=== PATIENT | female | born 1945 | race Caucasian/White ===

== ENCOUNTER 2017-05-27 17:13 | Emergency (ER) | payer MEDICARE, MEDICAID ==
--- NOTE | 2017-05-27 20:22 | ULT ---
ULTRASOUND WITH DOPPLER DUPLEX VENOUS LOWER EXTREMITY LEFT: HISTORY: A 72-year-old female with left lower extremity pain. TECHNIQUE: Color flow Doppler, spectral waveform analysis of pulsed Doppler, and rojas-scale imaging with compre ssion and augmentation, were used to evaluate the left common femoral, femoral, popliteal, posterior tibial, and superficial femoral, veins; and the proximal portions of the profunda femoral and great er saphenous, veins. FINDINGS: There is normal compressibility, demonstration of blood flow by color Doppler and pulsed Doppler, an d response to augmentation, in all interrogated veins. IMPRESSION: Negative. No deep vein thrombosis in the left lower extremity. jn[] POS: LYNDA
== END 2017-05-27 18:58 | disposition home or self-care (01) ==
LOC: ERS 17:13
DX: M79.605 Pain in left leg (principal); E78.5 Hyperlipidemia, unspecified; E66.9 Obesity, unspecified; I48.91 Unspecified atrial fibrillation; I10 Essential (primary) hypertension; J44.9 Chronic obstructive pulmonary disease, unspecified; M10.9 Gout, unspecified; Z79.899 Other long term (current) drug therapy; Z79.01 Long term (current) use of anticoagulants; Z79.891 Long term (current) use of opiate analgesic

== ENCOUNTER 2018-01-10 12:18 | Outpatient (CLI) | payer MEDICARE, MEDICAID ==
--- NOTE | 2018-01-10 13:38 | ULT ---
BILATERAL CAROTID ULTRASOUND WITH COLOR AND SPECTRAL DOPPLER IMAGING: HISTORY: A 72-year-old female with a history of a TIA. FINDINGS: Visual plaque is noted in both right and left proximal ICAs. PSV RIGHT ICA: 106 cm per second EDV: 36 cm per second ICA/CCA RATIO: 1.5 PSV LEFT ICA: 78 cm per second EDV: 16 cm per second ICA/CCA RATIO: 0.6 Vertebral flow is antegrade. IMPRESSION: 1. No hemodynamically significant stenosis. 2. Bilateral proximal internal carotid artery plaque, evidence for bilateral carotid artery vascular disease. POS: JARED
== END 2018-01-10 12:19 | disposition home or self-care (01) ==
LOC: ULT 12:18
PROVIDERS: ATTEND Family Medicine
DX: I65.23 Occlusion and stenosis of bilateral carotid arteries (principal)
CPT/HCPCS: 93306; 93880

== ENCOUNTER 2018-01-12 09:14 | Outpatient (CLI) | payer MEDICARE, MEDICAID | END 2018-01-12 09:15 | disposition home or self-care (01) | LOC: BICMAMMO 09:14 | PROVIDERS: ATTEND Family Medicine | DX: Z12.31 Encounter for screening mammogram for malignant neoplasm of breast (principal); N64.89 Other specified disorders of breast; R92.1 Mammographic calcification found on diagnostic imaging of breast | CPT/HCPCS: 77063; 77067 ==

== ENCOUNTER 2018-01-26 09:51 | Outpatient (CLI) | payer MEDICARE, MEDICAID | END 2018-01-26 09:52 | disposition home or self-care (01) | LOC: BICMAMMO 09:51 | PROVIDERS: ATTEND Family Medicine | DX: N64.89 Other specified disorders of breast (principal); R92.1 Mammographic calcification found on diagnostic imaging of breast | CPT/HCPCS: 77065; G0279 ==

== ENCOUNTER 2019-01-29 10:52 | Outpatient (CLI) | payer MEDICARE, OTHER ==
--- NOTE | 2019-01-29 13:11 | MMO ---
Bilateral MAMMO Bilat Screen [facility]. CLINICAL HISTORY: Patient is 73 years old and is seen for screening. The patient has no family history of breast cancer. The patient has no personal history of cancer. VIEWS: The views performed were: bilateral craniocaudal with tomosynthesis and bilateral mediolateral oblique with tomosynthesis. FILMS COMPARED: The present examination has been compared to prior imaging studies performed at [facility] on 01/14/2015, 06/29/2016, 01/12/2018 and 01/26/2018. MAMMOGRAM FINDINGS: There are scattered fibroglandular densities. There are stable benign appearing calcifications seen in both breasts. There are also vascular calcifications. There are no suspicious masses, suspicious calcifications, or new areas of architectural distortion. IMPRESSION: THERE IS NO MAMMOGRAPHIC EVIDENCE OF MALIGNANCY. A ROUTINE FOLLOW-UP MAMMOGRAM IN 1 YEAR IS RECOMMENDED. THE RESULTS OF THIS EXAM WERE SENT TO THE PATIENT. ACR BI-RADS Category 2 - Benign finding MAMMOGRAPHY NOTE: 1. A negative mammogram report should not delay a biopsy if a dominant of clinically suspicious mass is present. 2. Approximately 10% to 15% of breast cancers are not detected by mammography. 3. Adenosis and dense breasts may obscure an underlying neoplasm.
== END 2019-01-29 10:53 | disposition home or self-care (01) ==
LOC: BICMAMMO 10:52
PROVIDERS: ATTEND Family Medicine
DX: Z12.31 Encounter for screening mammogram for malignant neoplasm of breast (principal)
CPT/HCPCS: 77063; 77067

== ENCOUNTER 2019-03-27 15:42 | Observation (INO) | payer MEDICARE, MEDICAID ==
[2019-03-27] MEDS ORDERED: Ondansetron PF 4 MG/2 ML Vial ONE ×2 (18:30→19:45)
[2019-03-27] MEDS ORDERED: Bacitracin Zinc Ointment 30 gm TUBE ONE (18:53)
[2019-03-27] MEDS ORDERED: Sodium Chloride 0.9% 30 ML ONE (18:53)
[2019-03-27] MEDS ORDERED: Fentanyl 100 MCG/2 ML VIAL ONE (19:00)
[2019-03-27] MEDS ORDERED: Bupivacaine PF 0.5% 30 ML VIAL ONE (19:14)
[2019-03-27] MEDS ORDERED: Metoprolol Tartrate 5 MG/5 ML VIAL ONE (19:45)
[2019-03-27] MEDS ORDERED: Lidocaine 1% PF 5 ML VIAL ONE (19:45)
[2019-03-27] MEDS ORDERED: Dexamethasone 20 MG/5 ML VIAL ONE (19:45)
[2019-03-27] MEDS ORDERED: Rocuronium Bromide 10 MG/ML (10ML VIAL) ONE (19:45)
[2019-03-27] MEDS ORDERED: PROPOFOL 200 MG/20 ML VIAL ONE (19:45)
[2019-03-27] MEDS ORDERED: Meperidine HCl/PF 25 MG/ML VIAL SLOW IVP PRN (20:40)
[2019-03-27] MEDS ORDERED: Ondansetron HCl/PF 4 MG/2 ML Vial IVP PRN (20:40)
[2019-03-27] MEDS ORDERED: Morphine Sulfate 2 MG/ML SYRINGE SLOW IVP PRN (20:40)
[2019-03-27] MEDS ORDERED: PACU-Morphine 4MG/ML VIAL SLOW IVP PRN (20:40)
[2019-03-27] MEDS ORDERED: Promethazine HCl 25 MG/ML VIAL IM PRN ×2 (20:40→21:05)
[2019-03-27] MEDS ORDERED: Ketorolac Tromethamine 30 MG/ML VIAL IVP PRN (20:40)
[2019-03-27] MEDS ORDERED: HYDROmorphone 2 MG/ML VIAL SLOW IVP PRN (20:40)
[2019-03-27] MEDS ORDERED: Promethazine HCl 25 MG/ML VIAL SLOW IVP PRN (20:40)
[2019-03-27] MEDS ORDERED: Ondansetron PF 4 MG/2 ML Vial IV PRN (21:05)
[2019-03-27] MEDS ORDERED: Acetaminophen 325 MG TAB PO PRN (21:05)
[2019-03-27] MEDS ORDERED: Morphine 4 MG/ML VIAL SLOW IVP PRN (21:05)
[2019-03-27] MEDS ORDERED: traMADol HCl 50 MG TAB PO PRN (21:05)
[2019-03-27] MEDS ORDERED: HYDROcodone/Acetaminophen 5/325 mg Tablet PO PRN (21:05)
[2019-03-27] MEDS ORDERED: Meperidine HCl/PF 25 MG/ML VIAL IM PRN (21:13)
[2019-03-27] MEDS ORDERED: TETANUS AND DIPHTHERIA TOX/PF 0.5 ML DISP.SYRIN IM SCH (21:15)
[2019-03-27] MEDS ORDERED: Communication Order-Pharmacy FS SCH (21:15)
[2019-03-27] MEDS ORDERED: Vancomycin HCl 1 GM in Premix Bag 1 BAG IVPB SCH (21:15)
[2019-03-27] MEDS ORDERED: Albuterol Sulfate 2.5 mg/3 ml Neb NEB PRN ×2 (22:44→22:52)
[2019-03-27] MEDS ORDERED: diphenhydrAMINE 25 MG CAP PO PRN (22:46)
[2019-03-27 22:58] VITALS: BMI 42.7
--- NOTE | 2019-03-28 04:17 | OP ---
DATE OF PROCEDURE: 03/27/2019 PREOPERATIVE DIAGNOSES: Right dorsal hand dog bite with possible deep abscess, elevated white blood cell count. POSTOPERATIVE DIAGNOSIS: Hematoma, approximately of 1 cm x 1 cm area down to but not including the fascia with early abscess formation. PROCEDURE PERFORMED: 1. Evacuation of hematoma. 2. Incision and drainage of abscess. 3. . CULTURES: Aerobic and anaerobic of the cavity, the hematoma as well as the fat surrounding. TOURNIQUET TIME: 8 minutes. ESTIMATED BLOOD LOSS: 5 mL. FINDINGS: No gross purulence, but a small hematoma found. INDICATION: The patient is brought to clinic because of a dog bite 4 days ago where she self-treated herself with wound closure, had surrounding erythema, lymphangitis; treated with oral antibiotics that has failed to resolve it. She had some fluctuance consistent with the fact that the white blood cell count was not elevated. We thought she may have an infection. DESCRIPTION OF PROCEDURE: For this reason, the patient after obtaining appropriate counseling, prepped and draped, time-out done, and then we exsanguinated the limb, inflated to 250 mmHg pressure, gave her 10 mL 0.5% area block with Marcaine and then extended her flap of tissue 1 cm distal, 1 cm proximal, dissected to dorsal radial thumb. The patient had unroofing of the central 2 cm of the wound which was already part of her dog bite injury. There was some mild early mucopurulence with almost 1.5 x 2 cm area of hematoma diameter. We evacuated the hematoma. We removed all denuded fat via debridement using; 1. Excision technique. 2. Tenotomy scissors. 3. Adson's and Liebenthal blade. There were no other abnormalities seen and the depth was down to include the fascia. We now irrigated the open wound with 2 L of normal saline and Pulsavac pressure. We released the tourniquet, held pressure for 5 minutes because she was on both Plavix and Coumadin and once we obtained hemostasis, we closed the portion we opened leaving the central 2 cm open. Job ID: [id number]
[2019-03-28] MEDS ORDERED: Levothyroxine Sodium 50 MCG TAB PO SCH (06:00)
[2019-03-28] MEDS ORDERED: Allopurinol 300 MG TAB PO SCH (09:00)
[2019-03-28] MEDS ORDERED: Metoprolol Tartrate 50 MG TAB PO SCH (09:00)
[2019-03-28] MEDS ORDERED: Famotidine 20 MG TAB PO SCH (09:00)
[2019-03-28] MEDS ORDERED: Calcium Carbonate + Vit D 1 TAB PO SCH (09:00)
[2019-03-28] MEDS ORDERED: Multivitamin W/ Minerals 1 TAB PO SCH (09:00)
[2019-03-28] MEDS ORDERED: Furosemide 40 MG TAB PO SCH (09:00)
[2019-03-28] MEDS: Fluticasone Propionate Nasal Spray 16 gm Bottle NASAL SCH ×2 (09:39→10:43)
[2019-03-28 15:18] VITALS: BP 109/55; TEMP 98.5
[2019-03-28] MEDS ORDERED: Warfarin Sodium 2.5 MG TAB PO SCH (17:00)
[2019-03-28] MEDS ORDERED: tiZANidine HCl 4 MG TAB PO SCH (21:00)
[2019-03-28] MEDS ORDERED: Simvastatin 40 MG TAB PO SCH (21:00)
[2019-03-29] MEDS ORDERED: Warfarin Sodium 5 MG TAB PO SCH (17:00)
== END 2019-03-28 19:50 | disposition home or self-care (01) ==
LOC: SDC 15:42 → SURG A 21:05
PROVIDERS: ADMIT Orthopaedic Surgery Hand Surgery; ATTEND Orthopaedic Surgery Hand Surgery
PROC: 0J9J3ZZ Drainage of Right Hand Subcutaneous Tissue and Fascia, Percutaneous Approach (ICD-10-PCS; principal; 2019-03-27)
DX: S61.451A Open bite of right hand, initial encounter (principal); D72.829 Elevated white blood cell count, unspecified; Z79.01 Long term (current) use of anticoagulants; Z88.1 Allergy status to other antibiotic agents; Z88.8 Allergy status to other drugs, medicaments and biological substances; Z91.041 Radiographic dye allergy status; W54.0XXA Bitten by dog, initial encounter
CPT/HCPCS: 10140; 87070; 87075; 87205; 96365; 96366; G0378 ×2; 90714; J0131; J1100; J2001; J2405; J2704; J3010; J3370; J3490; J7050; S0020

== ENCOUNTER 2020-10-13 14:17 | Inpatient (IN) | payer MEDICARE, MEDICAID ==
[2020-10-13] MEDS ORDERED: Ondansetron PF 4 MG/2 ML Vial ONE (14:44)
[2020-10-13] MEDS ORDERED: Promethazine HCl 25 MG/ML VIAL ONE ×2 (14:47→18:24)
[2020-10-13] MEDS ORDERED: Morphine 4 MG/ML VIAL ONE ×2 (15:12→22:28)
[2020-10-13 15:30] LABS: #Eosinphils 0.1 thou/uL (0.0-0.7); #Lymphocytes 2.7 thou/uL (1.20-3.40); #Monocytes 0.6 thou/uL (0.11-0.59); #Neutrophils 6.5 thou/uL (1.40-6.50); %Basophils 0.5 % (0.0-1.0); %Eosinophils 1.3 % (0.0-10.0); %Lymphocytes 27.1 % (21.0-51.0); %Monocytes 5.8 % (0.0-10.0); %Neutrophils 65.3 % (42.0-75.0); Hemoglobin 14.4 g/dL (12.0-16.0); Mean Corpuscular HGB CONC 31.9 g/dL (32.0-36.0); Mean Corpuscular Hemoglobin 31.1 pg (27.0-31.0); Mean Corpuscular Volume 97.6 fL (78.0-98.0); Mean Platelet Volume 8.9 fL (7.4-10.4); Platelet Count 205 thou/uL (130-400); RBC Distribution Width 13.1 % (11.5-14.5); Red Blood Cell (RBC) Count 4.63 mill/uL (4.20-5.40); White Blood Cell (WBC) Count 9.9 thou/uL (4.8-10.8)
[2020-10-13 15:38] LABS: INR-International Normal Ratio 1.5; PTT 32.1 sec (22.9-36.1); Prothrombin Time 18.8 sec (12.0-14.7)
--- NOTE | 2020-10-13 15:48 | CT ---
EXAM: CT facial bones PROVIDED CLINICAL HISTORY: Trauma. Pain. Fall. Hematoma. COMPARISON: None FINDINGS: Visualized intracranial contents: Intact. Orbits: There is extensive left periorbital soft tissue swelling and hematoma. Bilateral ocular lens implants are appropriately located. Both globes are intact. Retrobulbar fat is preserved. Symmetric attenuation the optic nerves and ocular rectus muscles. Cervical spine: Intact. Soft tissues: Extensive left periorbital and left facial soft tissue swelling and hematoma. The large hematoma is anterior to the left zygomatic arch and maxillary sinus, measuring 4.1 x 2.0 cm. Bones: Nasal bones: Intact. Maxilla: Intact. Mandible: Intact. Zygomatic arches: Intact. Pterygoid plates: Intact. Orbital rims: Intact. Orbital wall and floor: There is a left orbital floor fracture. There is approximately 0.7 cm depress ion of the left orbital floor. Disc herniation of intraorbital fat as well as the inferior ocular rectus muscle through the defect. There is a strong possibility of entrapment of the inferior left oc ular rectus muscle. Frontal skull: Intact. Paranasal sinuses: Opacification of the left maxillary sinus, due to posttraumatic change Coronal images: Bilateral ostiomeatal complexes are patent. Nasal septum is intact. IMPRESSION: 1. Extensive posterior matter changes along the left periorbital left facial soft tissues 2. Left orbital floor fracture. There is herniation of intraorbital fat as well as inferior ocular re ctus muscle through the defect. There is a concern for possible entrapment. Ophthalmology consultation is recommended Transcribed Date/Time: 10/13/2020 4:11 PM
--- NOTE | 2020-10-13 15:48 | CT ---
EXAM: CT cervical spine PROVIDED CLINICAL HISTORY: Left shoulder pain and left-sided facial swelling after a fall. Trauma. TECHNIQUE: Contiguous axial CT images are obtained through the cervical spine from the skull base to the T1-2 le demetrius. Sagittal and coronal reformatted images are provided. COMPARISON: 02/27/2017 FINDINGS: Multilevel degenerative changes are again seen in the cervical spine with multilevel severe facet hyp ertrophic changes present. Findings are overall similar to the prior exam with varying degrees of moderate and moderate to severe neural foraminal narrowing at multiple levels. No fracture or traumatic subluxation is seen involving the cervical spine. No prevertebral soft tissue swelling apparent. Limited visualized lung apices are clear. No other interval change. IMPRESSION: Stable CT cervical spine with multilevel degenerative changes present. No fracture or traumatic subluxation is visualized..
[2020-10-13 15:51] LABS: ALT (SGPT) 16 U/L (8-55); AST (SGOT) 19 U/L (5-34); Alkaline Phosphatase 57 U/L (40-110); Anion Gap 14 mmol/L (10-20); BUN (Urea Nitrogen) 17 mg/dL (9.8-20.1); Bilirubin, Total 0.4 mg/dL (0.2-1.2); CK (CPK) 145 U/L (29-168); Calc. Creatinine Clearance 0 mL/min (70-130); Calcium 8.9 mg/dL (7.8-10.44); Carbon Dioxide 25 mmol/L (23-31); Chloride 107 mmol/L (98-107); Glucose 140 mg/dL (83-110); Potassium 3.7 mmol/L (3.5-5.1); Sodium 142 mmol/L (136-145)
--- NOTE | 2020-10-13 15:52 | CT ---
CT of thehead: 10/13/2020 COMPARISON:07/21/2020 HISTORY:Fall, trauma, left facial swelling TECHNIQUE: Serial axial CT imaging at2.5 mm intervals from theskull base through vertex without contr ast. Findings:There is a large area of periorbital soft tissue swelling on the left superiorly, laterally, and inferiorly located with respect to the left orbit. There is a heterogeneously hyperdense mass within the soft tissues anterior to the maxillary sinus on the left measuring 4.6 x 2.6 cm, consisten t with a large soft tissue hematoma. There is a left orbital floor fracture for which dedicated facial bone CT is recommended. The frontal sinuses, the ethmoid air cells, the sphenoid sinuses, and the right maxillary sinus appea r unremarkable. There is a air-fluid level within the maxillary sinus on the left. No intracranial hemorrhage, midline shift, mass effect, or ventricular enlargement. Impression:Prominent left periorbital soft tissue swelling with prominent subcutaneous hematoma anter ior to the left maxillary sinus. There is an orbital floor fracture on the left, incompletely characterized on this exam, for which dedicated CT of the face is advised.
[2020-10-13] MEDS ORDERED: Labetalol HCl 100 MG/20 ML VIAL ONE (16:04)
--- NOTE | 2020-10-13 16:17 | RAD ---
Exam:3 views left foot HISTORY: Trauma. Fall. Pain COMPARISON: None FINDINGS: Lisfranc alignment is maintained. Joint spaces are preserved. Nonspecific calcification of the soft tissues. There is atherosclerosis. There are degenerative changes of the midfoot. There is mild bony mineralization. No fracture. IMPRESSION: Chronic degenerative changes, without evidence of fracture
--- NOTE | 2020-10-13 16:20 | RAD ---
Exam:2 views left HISTORY: Fall. Pain COMPARISON: 05/27/2017 FINDINGS: Joint spaces preserved. Contour the femoral head is maintained. No fracture. IMPRESSION: No fracture. If the patient is unable to bear weight, CT can be performed.
--- NOTE | 2020-10-13 16:21 | RAD ---
Radiograph left knee 4 views: 10/13/2020 HISTORY: 75-year-old female with acute traumatic left knee pain due to fall COMPARISON: 05/01/2019 FINDINGS: No joint effusion. No fracture identified. No dislocation. Patellofemoral compartment: Mild DJD. Lateral compartment: Severe DJD with high-grade joint space narrowing, moderately large osteophytosis , and articular surface irregularity. Medial compartment: Mild DJD with mild joint space narrowing, chondrocalcinosis, but no large osteoph ytes. No interval change. IMPRESSION: 1. No evidence of fracture. 2. Severe osteoarthrosis of the lateral compartment
[2020-10-13] MEDS ORDERED: Promethazine HCl 12.5 MG in Sodium Chloride 0.9% 50 ML IVPB SCH (18:30)
[2020-10-13] MEDS ORDERED: Ampicillin/Sulbactam 3 GM in Sodium Chloride 0.9% 100 ML IVPB SCH (18:30)
--- NOTE | 2020-10-14 04:39 | PDOC.HHP ---
Hospitalist HPI Falls, nausea and vomiting. History of Present Illness: This is a 75-year-old female patient with a history of gout, sleep apnea, atrial fibrillation, hyperlipidemia and hypertension who presents today after she noel ed and fell injuring her left orbit. Patient notes she was going to close her gait at home and she ended up tripping and with a face and end up hitting the gait which led to swelling. This brought her to the ED for evaluation. She notes having ongoing headache, facial pain nausea and vomiting. At presentation blood pressure was 159/73, pulse 71, respiratory 20, temperature 97.7 and saturating 93% on room air. Labs showed unremarkable CBC, CMP a glucose of 140 and INR was 1.5. [address] of her brain, cervical spine showed no acute abnormalities. However CT of the facial bones showed extensive left periorbital soft tissue swelling and hematoma bilateral ocular lenses are appropriately located. Both globes were intact. X- ray of the hip knee and foot noted no acute fractures. Severe ostial right is was noted on the left knee. Patient received morphine and promethazine ampicillin and labetalol. Patient lives aloneCase was discussed with trauma team and no surgical intervention was indicated. Hospitalist team was consulted to admit patient for intractable nausea and vomiting. Allergies/Adverse Reactions: Allergy/AdvReac Type Severity Reaction Status Date / Time ciprofloxacin [From Cipro] Allergy ITCHING, Verified 11/04/19 01:41 LIPS SWELLING, NAUSEA iodine Allergy Anaphylaxis Verified 11/04/19 01:41 rivaroxaban [From Xarelto] Allergy LIPS Verified 11/04/19 01:41 SWELL, ITCHING, NAUSEA tetracycline [Tetracycline] Allergy ITCNING, Verified 11/04/19 01:41 LIPS SWELLING, NAUSEA adhesive tape Allergy Uncoded 11/04/19 01:41 Home Medications: Medication Instructions Recorded Confirmed Type Allopurinol [Zyloprim] 50 mg PO DAILY 02/03/14 04/04/19 History Calcium Carbonate/Vitamin D3 1 tab PO DAILY 02/03/14 04/04/19 History [Calcium 600 + Vitamin D] Furosemide 0.5 tab PO DAILY PRN 02/03/14 04/04/19 History HYDROcodone Bit/APAP 10/325 [[place]] 1 tab PO PRN PRN 02/03/14 04/04/19 History Levothyroxine Sodium 50 mcg PO DAILY 02/03/14 04/04/19 History Metoprolol Tartrate 50 mg PO BID 02/03/14 04/04/19 History Ranitidine HCl 300 mg PO HS 02/03/14 04/04/19 History Simvastatin 40 mg PO HS 02/03/14 04/04/19 History Warfarin Sodium [Coumadin] 2.5 mg PO ASDIR 02/03/14 04/04/19 History Warfarin Sodium [Coumadin] 5 mg PO ASDIR 02/03/14 04/04/19 History tiZANidine HCl [Zanaflex] 4 mg PO HS PRN 02/03/14 04/04/19 History Sulfamethoxazole/Trimethoprim 1 tab PO BID #30 tab 03/28/19 04/04/19 Rx [Bactrim DS] Allopurinol [Zyloprim] 1 tab PO HS 04/04/19 04/04/19 History Cetirizine HCl 10 mg PO DAILY 04/04/19 04/04/19 History Cholecalciferol (Vitamin D3) 2,000 unit PO DAILY 04/04/19 04/04/19 History [Vitamin D3] Fluticasone Propionate [Flonase 1 spray EA NARE DAILY 04/04/19 04/04/19 History Nasal [place]] Multivitamin [Multivitamins] 1 cap PO DAILY 04/04/19 04/04/19 History Potassium Chloride 10 meq PO DAILY 04/04/19 04/04/19 History pyridOXINE [Vitamin B 6] 100 mg PO DAILY 04/04/19 04/04/19 History Past History: Past medical history:gout, sleep apnea, atrial fibrillation, hyperlipidemia and hypertension Past surgical history: Hysterectomy, thyroidectomy, Family history: None of significance. Social history: Denies alcohol or drug use. No smoking history. Hospitalist HPI ROS Constitutional: denies: fever, chills, sweats, weakness Eyes: reports: pain. denies: vision change, conjunctivae inflammation ENT: reports: ear pain Respiratory: denies: cough, shortness of breath, hemoptysis Cardiovascular: denies: chest pain, palpitations, orthopnea Gastrointestinal: reports: nausea, vomiting. denies: abdominal pain, diarrhea Musculoskeletal: denies: neck pain, shoulder pain, arm pain, back pain Neurological: denies: weakness, numbness, incoordination All other systems reviewed; all pertinent +/- noted in HPI/Subj Hospitalist Exam General Appearance: awake alert General - other findings: In no acute distress Eye: anicteric sclera ENT - other findings: Severely swollen left periorbital soft tissue Neck: supple, symmetric, no JVD Heart: RRR, no murmur, no gallops Respiratory: CTAB, no wheezes, no rales Gastrointestinal: soft, non-tender, non-distended Extremities: no cyanosis, no clubbing, no edema Neurological: cranial nerve grossly intact (However slightly hard of hearing.), no weakness, no focal deficits Musculoskeletal: normal tone, normal strength, no muscle wasting Psychiatric: normal affect, normal behavior, A&O x 3 Hospitalist Results Result Diagrams: 10/13/20 15:02 10/13/20 15: Lab results: Laboratory Last Values WBC 9.9 thou/uL (4.8-10.8) 10/13/20 15: RBC 4.63 mill/uL (4.20-5.40) 10/13/20 15: Hgb 14.4 g/dL (12.0-16.0) 10/13/20 15:02 Hct 45.2 % (36.0-47.0) 10/13/20 15:02 MCV 97.6 fL (78.0-98.0) 10/13/20 15: MCH 31.1 pg (27.0-31.0) H 10/13/20 15:02 MCHC 31.9 g/dL (32.0-36.0) L 10/13/20 15:02 RDW 13.1 % (11.5-14.5) 10/13/20 15:02 Plt Count 205 thou/uL (130-400) 10/13/20 15:02 MPV 8.9 fL (7.4-10.4) 10/13/20 15:02 Neutrophils % 65.3 % (42.0-75.0) 10/13/20 15:02 Lymphocytes % 27.1 % (21.0-51.0) 10/13/20 15:02 Monocytes % 5.8 % (0.0-10.0) 10/13/20 15: Eosinophils % 1.3 % (0.0-10.0) 10/13/20 15: Basophils % 0.5 % (0.0-1.0) 10/13/20 15:02 Neutrophils # 6.5 thou/uL (1.40-6.50) 10/13/20 15:02 Lymphocytes # 2.7 thou/uL (1.20-3.40) 10/13/20 15:02 Monocytes # 0.6 thou/uL (0.11-0.59) H 10/13/20 15:02 Eosinophils # 0.1 thou/uL (0.0-0.7) 10/13/20 15:02 Basophils # 0.0 thou/uL (0.0-0.2) 10/13/20 15:02 PT 18.8 sec (12.0-14.7) H 10/13/20 15:02 INR 1.5 10/13/20 15:02 APTT 32.1 sec (22.9-36.1) 10/13/20 15:02 Sodium 142 mmol/L (136-145) 10/13/20 15:02 Potassium 3.7 mmol/L (3.5-5.1) 10/13/20 15:02 Chloride 107 mmol/L (98-107) 10/13/20 15:02 Carbon Dioxide 25 mmol/L (23-31) 10/13/20 15:02 Anion Gap 14 mmol/L (10-20) 10/13/20 15:02 BUN 17 mg/dL (9.8-20.1) 10/13/20 15:02 Creatinine 0.91 mg/dL (0.6-1.1) 10/13/20 15:02 Estimated GFR (MDRD) 60 10/13/20 15:02 Glucose 140 mg/dL (83-110) H 10/13/20 15:02 Calcium 8.9 mg/dL (7.8-10.44) 10/13/20 15:02 Total Bilirubin 0.4 mg/dL (0.2-1.2) 10/13/20 15:02 AST 19 U/L (5-34) 10/13/20 15:02 ALT 16 U/L (8-55) 10/13/20 15:02 Alkaline Phosphatase 57 U/L (40-110) 10/13/20 15:02 Creatine Kinase 145 U/L (29-168) 10/13/20 15:02 Serum Total Protein 7.0 g/dL (5.8-8.1) 10/13/20 15:02 Albumin 4.0 g/dL (3.4-4.8) 10/13/20 15:02 Globulin 3.0 g/dL (2.4-3.5) 10/13/20 15:02 Albumin/Globulin Ratio 1.3 g/dL (1.2-2.2) 10/13/20 15:02 Hospitalist H&P A/P Plan: This is a 75-year-old female patient who presents after a fall and trauma to her left orbit. She has significant swelling occluding her left eye however no significant eye pathology. She has intractable nausea and vomiting for which she will be admitted and managed. Intractable nausea and vomiting Unclear source possible infection Also trauma from head injuryno intracerebral lesion noted however. We will give as needed Zofran and monitor. Left eye trauma Periorbital soft tissue lesions however not amenable to surgery at the moment. We will admit and monitor Hold Coumadin A. fib Current not in RVR Hold warfarin Continue monitoring. Hypothyroidism Continue levothyroxine once verified. Gout Resume home medications once verified. Carotid artery disease Resume statins Concerns for infection She received ampicillin sulbactam due to concerns for infection We we will hold antibiotics for now and monitor VT prophylaxisSCD CODE STATUSfull
[2020-10-14] MEDS ORDERED: Dextrose 50% Abboject 50 ML SYRINGE SLOW IVP PRN (04:45)
[2020-10-14] MEDS ORDERED: Dextrose 5% in Water 1,000 ML IV PRN (04:45)
[2020-10-14] MEDS ORDERED: HumaLOG 300 UNITS/3 ML VIAL SC PRN (04:45)
[2020-10-14] MEDS ORDERED: Acetaminophen 325 MG TAB PO PRN (04:45)
[2020-10-14] MEDS ORDERED: Ondansetron PF 4 MG/2 ML Vial IVP PRN (04:50)
[2020-10-14] MEDS ORDERED: Ondansetron ODT 4 MG TAB PO PRN (04:50)
[2020-10-14] MEDS: Sodium Chloride 0.9% 1,000 ML IV SCH ×2 (05:28→19:21)
[2020-10-14 05:45] LABS: SARS-CoV-2 PCR by NAA Not Detected (NotDetected)
[2020-10-14] MEDS ORDERED: HYDROcodone/Acetaminophen 5/325 mg Tablet ONE (07:07)
[2020-10-14] MEDS: HYDROcodone/Acetaminophen 5/325 mg Tablet PO PRN ×3 (07:10→17:15)
[2020-10-14 07:44] LABS: #Basophils 0.1 thou/uL (0.0-0.2); #Eosinphils 0.1 thou/uL (0.0-0.7); #Monocytes 0.4 thou/uL (0.11-0.59); #Neutrophils 6.2 thou/uL (1.40-6.50); %Basophils 0.6 % (0.0-1.0); %Eosinophils 1.2 % (0.0-10.0); %Lymphocytes 22.8 % (21.0-51.0); %Monocytes 4.9 % (0.0-10.0); %Neutrophils 70.5 % (42.0-75.0); Hemoglobin 13.3 g/dL (12.0-16.0); Mean Corpuscular Hemoglobin 31.3 pg (27.0-31.0); Mean Platelet Volume 8.7 fL (7.4-10.4); Platelet Count 199 thou/uL (130-400); RBC Distribution Width 13.1 % (11.5-14.5); Red Blood Cell (RBC) Count 4.24 mill/uL (4.20-5.40); White Blood Cell (WBC) Count 8.8 thou/uL (4.8-10.8)
[2020-10-14 08:13] LABS: Anion Gap 15 mmol/L (10-20); BUN (Urea Nitrogen) 17 mg/dL (9.8-20.1); Calc. Creatinine Clearance 0 mL/min (70-130); Calcium 9.1 mg/dL (7.8-10.44); Carbon Dioxide 25 mmol/L (23-31); Chloride 107 mmol/L (98-107); Glucose 122 mg/dL (83-110); Potassium 4.3 mmol/L (3.5-5.1); Sodium 143 mmol/L (136-145)
--- NOTE | 2020-10-14 09:03 | RAD ---
LEFT TIBIA AND FIBULA 2 VIEWS: Date: 10/14/2020 HISTORY: Tibia/fibula pain status post fall. FINDINGS: There are marked arthritic changes of the knee. Vascular and other soft tissue calcifications are see n. No fractures. IMPRESSION: No evidence of fracture. POS: PADMINI
[2020-10-14 12:15] VITALS: BMI 40.8
--- NOTE | 2020-10-14 13:59 | CON ---
DATE OF CONSULTATION: 10/14/2020 REQUESTING PHYSICIAN: Santos Valerio MD, hospitalist. ATTENDING: Trauma surgeon, Dr. Lyn. CHIEF COMPLAINT: Mechanical fall, on Eliquis, nausea, vomiting. HISTORY OF PRESENT ILLNESS: This is a 75-year-old female with past medical history of hypertension, atrial fibrillation, on Coumadin, gout, sleep apnea, and hyperlipidemia, who presented to the emergency room after she tripped and fell. The patient tripped, landing on her left side of her face and left knee. The patient denied any loss of consciousness. The patient was able to recall the event. The patient denied any chest pain, shortness of breath, lightheaded, or dizziness prior to falling. The patient was evaluated in the emergency room and found to have a left orbital fracture in which oral maxillofacial surgery was consulted and the patient is to follow up outpatient. The patient's CT of her brain and C-spine were unremarkable. The patient did suffer a large hematoma to the left side of the face. The patient had nausea and vomiting that was unrelieved with Zofran in the emergency room. For this reason, ER physician requested admission due to the nausea and vomiting. The patient's Coumadin level was subtherapeutic. The patient denied any neck pain. The patient's Liv Coma Scale is 15. The patient does complain of some left lower leg pain. REVIEW OF SYSTEMS: A 10-point review of systems is negative unless otherwise indicated in the above HPI. ALLERGIES: CIPROFLOXACIN, IODINE, XARELTO, TETRACYCLINE, AND ADHESIVE TAPE. HOME MEDICATIONS: 1. Allopurinol 50 mg p.o. daily. 2. Calcium/vitamin D3 one tab daily. 3. Furosemide daily. 4. Hydrocodone daily. 5. Levothyroxine 50 mcg p.o. daily. 6. Metoprolol 50 mg p.o. b.i.d. 7. Ranitidine 300 mg p.o. at bedtime. 8. Simvastatin 40 mg p.o. at bedtime. 9. Coumadin 2.5 mg p.o. and 5 mg p.o. 10. Zanaflex 4 mg p.o. at bedtime p.r.n. 11. Bactrim 1 tab p.o. b.i.d. 12. Cetirizine 10 mg p.o. daily. 13. Flonase nasal spray daily. 14. Multivitamin daily. 15. Potassium chloride 10 mEq p.o. daily. 16. Vitamin B6 of 100 mg p.o. daily. PAST MEDICAL HISTORY: Gout, sleep apnea, atrial fibrillation, hyperlipidemia, and hypertension. PAST SURGICAL HISTORY: Hysterectomy and thyroidectomy. FAMILY HISTORY: Not pertinent. SOCIAL HISTORY: Denies alcohol use. Denies drug use. Denies smoking history. PHYSICAL EXAMINATION: VITAL SIGNS: Temperature 98.3, pulse 78, respirations 20, SpO2 of 95% on room air, and blood pressure 168/94. GENERAL: Well-appearing elderly female, awake, alert, in no distress. HEENT: Normocephalic, hematoma, ecchymosis, left side of face, periorbital edema and ecchymosis. Extraocular muscles intact. Pupils are equal bilateral 3 mm and react. Midface is stable. Mucous membranes are moist. Normal nares exam, no bleeding noted. Ear exam normal. NECK: No cervical spine tenderness. Normal range of motion of neck. Trachea is midline. No JVD. CARDIAC: Regular rate, regular rhythm. Systolic murmur 3/6. No pedal edema. RESPIRATORY: Good inspiratory and expiratory effort. No wheezing, rales, or rhonchi. Clear bilateral. ABDOMEN: Soft, nontender, nondistended. EXTREMITIES: Moves all extremities, neurovascularly intact x4. Left knee abrasion, ecchymosis below left knee and tender to palpation. NEUROLOGIC: No focal deficits. GCS 15. Strength 5/5 upper extremities and positive dorsiflexion and plantar flexion. SKIN: Warm, dry, normal color. LABORATORY DATA: WBC 8.8, RBC 4.24, hemoglobin 13.3, hematocrit 41.6, and platelets 199. PT 18.8, INR 1.5, and APTT 32.1. Sodium 143, potassium 4.3, chloride 107, BUN 17, creatinine 0.91, estimated GFR 60, glucose 122, and calcium 9.1. COVID-19 negative. DIAGNOSTIC DATA: Brain CT, impression, prominent left periorbital soft tissue swelling with prominent subcutaneous hematoma anterior to the left maxillary sinus. There is an orbital floor fracture on the left. No intracranial hemorrhage, midline shift, mass effect or ventricular enlargement. Cervical spine CT, impression, stable CT cervical spine with multilevel degenerative changes present. No fracture or traumatic subluxation is visualized. Facial bone CT, impression, extensive posterior matter changes along the left periorbital and left facial soft tissues. Left orbital floor fracture. There is herniation of the intraorbital fat as well as inferior ocular rectus muscle through the defect. Foot x-ray, impression, chronic degenerative changes without evidence of fracture. Left hip, impression, no fracture. If the patient is unable to bear weight, CT can be performed. Left knee x-ray, impression, no evidence of fracture. Severe osteoarthritis of the lateral compartment. Left tib-fib x-ray, impression, no evidence of fracture. ASSESSMENT: 1. Status post mechanical fall. 2. Left orbital floor fracture. 3. Concussion. 4. Nausea, vomiting. RECOMMENDATIONS: Ice pack to left side of face p.r.n. for swelling. Up in the chair as much as possible. Increase activity per Physical and Occupational Therapy. The patient will benefit from physical therapy if her insurance allows. Otherwise, a swing bed or group home for continued rehab. Follow up outpatient with Oral maxillofacial Surgery for her left orbital floor fracture per Neurosurgery consult. Regular diet as tolerated. If the patient continues to have nausea or vomiting, may benefit from a scopolamine patch. The patient was examined by Dr. Mcconnell during morning rounds. Please let us know if you have any further questions or concerns. Job ID: [id number]
[2020-10-14] MEDS ORDERED: HYDROcodone/Acetaminophen 10/325 mg Tablet PO PRN (16:47)
[2020-10-14] MEDS ORDERED: Furosemide 40 MG TAB PO PRN (16:47)
[2020-10-14] MEDS ORDERED: tiZANidine HCl 4 MG TAB PO PRN (16:47)
--- NOTE | 2020-10-14 19:03 | PDOC.HOSPP ---
- Subjective Encounter Date: 10/14/20 Encounter Time: 19:01 Subjective: Ms. Tinoco was seen today in follow-up of orbital fracture. She notes swelling , but says she is able to open her eye a bit wider. She is also concerned because she had recent surgery in the affected eye. - Objective Vital Signs & Weight: Vital Signs (12 hours) Temp Pulse Resp BP Pulse Ox 10/14/20 18:49 166/70 H 10/14/20 16:25 98.3 F 75 18 180/83 H 97 10/14/20 10:10 98.3 F 78 20 168/94 H 95 Weight Weight 268 lb 8.368 oz I&O: 10/13/20 10/14/20 10/15/20 06:59 06:59 06:59 Intake Total 600 Balance 600 Result Diagrams: 10/14/20 07:35 10/14/20 07:35 Additional Labs: Accuchecks 10/14/20 11:14 POC Glucose 98 Hospitalist ROS - Medication Medications: Active Medications Generic Name Dose Route Start Last Admin Trade Name Freq PRN Reason Stop Dose Admin Hydrocodone Bitart/Acetaminophen 1 tab 10/14/20 04:45 10/14/20 17:15 Hydrocodone/Acetaminophen 5/325 Mg Tablet PO 1 tab Q4H PRN Administration Moderate Pain (4-6) Sodium Chloride 1,000 mls @ 100 mls/hr 10/14/20 05:00 10/14/20 05:28 Normal Saline 0.9% IV 1,000 mls .Q10H SATNAM Administration Hospitalist Exam Vitals: Vital Signs (12 hours) Temp Pulse Resp BP Pulse Ox 10/14/20 18:49 166/70 H 10/14/20 16:25 98.3 F 75 18 180/83 H 97 10/14/20 10:10 98.3 F 78 20 168/94 H 95 Weight Weight 268 lb 8.368 oz Eye - other findings: + swelling in the left eye, and bruising, conjunctival hemorrhage Heart: RRR, no murmur, no gallops, no rubs, normal peripheral pulses Respiratory: CTAB, no wheezes, no rales, no ronchi, normal chest expansion, no tachypnea, normal percussion Gastrointestinal: soft, non-tender, non-distended, normal bowel sounds, no palpable masses, no hepatomegaly Extremities: no cyanosis, no edema Hosp A/P (1) Left orbit fracture Code(s): S02.85XA - FRACTURE OF ORBIT, UNSPECIFIED, INIT Status: Acute (2) Hypertension Code(s): I10 - ESSENTIAL (PRIMARY) HYPERTENSION Status: Acute (3) Gout Code(s): M10.9 - GOUT, UNSPECIFIED Status: Acute (4) Atrial fibrillation Code(s): I48.91 - UNSPECIFIED ATRIAL FIBRILLATION Status: Acute (5) Sleep apnea Code(s): G47.30 - SLEEP APNEA, UNSPECIFIED Status: Acute (6) Hypothyroidism Code(s): E03.9 - HYPOTHYROIDISM, UNSPECIFIED Status: Chronic - Plan * Left Orbital fracture- [place] [facility] [place] can be better assessed once the swelling has improved. He will come by to see the patient tomorrow * AFIB - her heart rate is stable * DVT- will hold coumadin - re-assess in the AM * HTN- blood pressure is a bit elevated. Will continue metoprolol, and will add Hydralazine as needed * Gout- will continue Allopurinol * Will consult Ophthalmology * Hypothyroidism- she is clinically euthyroid- continue Levothyroxine
[2020-10-14] MEDS: Metoprolol Tartrate 50 MG TAB PO SCH (19:21)
[2020-10-14] MEDS: Allopurinol 300 MG TAB PO SCH ×2 (19:21→19:24)
[2020-10-14] MEDS ORDERED: hydrALAZINE 25 MG TAB PO PRN (19:24)
[2020-10-14] MEDS ORDERED: Atorvastatin Calcium 20 MG TAB PO SCH (21:00)
[2020-10-15] MEDS: HYDROcodone/Acetaminophen 5/325 mg Tablet PO PRN ×2 (00:40→15:21)
[2020-10-15] MEDS: Sodium Chloride 0.9% 1,000 ML IV SCH ×2 (05:36→12:11)
[2020-10-15] MEDS ORDERED: Levothyroxine Sodium 50 MCG TAB PO SCH (06:00)
[2020-10-15 06:21] LABS: #Basophils 0.1 thou/uL (0.0-0.2); #Eosinphils 0.3 thou/uL (0.0-0.7); #Lymphocytes 2.6 thou/uL (1.20-3.40); #Monocytes 0.8 thou/uL (0.11-0.59); #Neutrophils 4.6 thou/uL (1.40-6.50); %Basophils 0.8 % (0.0-1.0); %Eosinophils 3.9 % (0.0-10.0); %Monocytes 9.1 % (0.0-10.0); %Neutrophils 55.3 % (42.0-75.0); Hemoglobin 12.2 g/dL (12.0-16.0); Mean Corpuscular HGB CONC 31.3 g/dL (32.0-36.0); Mean Corpuscular Volume 99.3 fL (78.0-98.0); Mean Platelet Volume 8.8 fL (7.4-10.4); Platelet Count 169 thou/uL (130-400); RBC Distribution Width 12.9 % (11.5-14.5); Red Blood Cell (RBC) Count 3.94 mill/uL (4.20-5.40); White Blood Cell (WBC) Count 8.3 thou/uL (4.8-10.8)
[2020-10-15 06:38] LABS: Anion Gap 11 mmol/L (10-20); BUN (Urea Nitrogen) 14 mg/dL (9.8-20.1); Calc. Creatinine Clearance 120 mL/min (70-130); Calcium 8.4 mg/dL (7.8-10.44); Carbon Dioxide 26 mmol/L (23-31); Chloride 106 mmol/L (98-107); Glucose 92 mg/dL (83-110); Potassium 4.2 mmol/L (3.5-5.1); Sodium 139 mmol/L (136-145)
--- NOTE | 2020-10-15 08:17 | CON ---
DATE OF CONSULTATION: 10/14/2020 REASON FOR CONSULTATION: Left orbital floor fracture. TIME: 8 p.m. HISTORY OF PRESENT ILLNESS: The patient is a 75-year-old woman who had cataract surgery and intraocular lens implantation of each eye about 2 to [address] Amin in the [facility]. One day earlier, she had tripped in her backyard and fell with her left face striking a chain-link fence or its gate with a subsequent fracture of the left orbital floor with herniation of the left inferior rectus through the fracture defect. The hospitalist Jelena guzman P has been reviewed. PHYSICAL EXAMINATION: HEENT: On examination, there has been a considerable swelling of the tissues below the left eye and mild swelling of the left upper lid with a bandage over the prominence below the eye. Visual acuity with +2.00, correction is J-1 (20/25 equivalent) for the right eye and J-5 (20/60 equivalent) for the left eye. The pupils are about 1 to 2 mm and minimally reactive. On motility exam, the eyes are aligned with full horizontal movements. Neither eye has much upgaze, and both eyes have full downgaze. Intra-ocular pressure with Daniel-Pen was 6 and 7 mmHg in the right eye and 18 and 22 mmHg in the left eye. Corneas are clear and the anterior chamber appears full depth without hyphema. The pupils were dilated and the intra-ocular lenses are in place and immobile. Fundus exam is normal, with no retinal hemorrhages or edema or elevation. ASSESSMENT: Left orbital floor fracture with possible entrapment, although there is no indication from the exam that entrapment exists. PLAN: She has been seen by the Oral and Maxillofacial Service, and they will be considering repair of the orbital floor in the near future. Job ID: [id number] [facility]
--- NOTE | 2020-10-15 08:58 | PDOC.HOSPP ---
- Subjective Encounter Date: 10/15/20 Encounter Time: 08:57 Subjective: Ms. Tinoco was seen today in follow-up of orbital fracture. She notes improved vision, but it is still a bit blurry, and less swelling. She has been seen by OMFS. - Objective Vital Signs & Weight: Vital Signs (12 hours) Temp Pulse Resp BP Pulse Ox 10/15/20 08:09 98.8 F 74 13 164/83 H 95 10/15/20 05:00 98.5 F 77 16 164/83 H 93 L Weight Weight 268 lb 8.368 oz I&O: 10/14/20 10/15/20 10/16/20 06:59 06:59 06:59 Intake Total 800 Output Total 700 Balance 100 Result Diagrams: 10/15/20 05:21 10/15/20 05:22 Additional Labs: Accuchecks 10/14/20 11:14 POC Glucose 98 Hospitalist ROS - Medication Medications: Active Medications Generic Name Dose Route Start Last Admin Trade Name Freq PRN Reason Stop Dose Admin Hydrocodone Bitart/Acetaminophen 1 tab 10/14/20 04:45 10/15/20 00:40 Hydrocodone/Acetaminophen 5/325 Mg Tablet PO 1 tab Q4H PRN Administration Moderate Pain (4-6) Allopurinol 300 mg 10/14/20 21:00 10/14/20 19:24 Allopurinol 300 Mg Tab PO 300 mg HS SATNAM Administration Atorvastatin Calcium 20 mg 10/14/20 21:00 10/14/20 19:21 Atorvastatin Calcium 20 Mg Tab PO 20 mg HS SATNAM Administration Sodium Chloride 1,000 mls @ 100 mls/hr 10/14/20 05:00 10/15/20 05:36 Normal Saline 0.9% IV Not Given .Q10H SATNAM Levothyroxine Sodium 50 mcg 10/15/20 06:00 10/15/20 05:25 Levothyroxine Sodium 50 Mcg Tab PO 50 mcg 0600 SATNAM Administration Metoprolol Tartrate 50 mg 10/14/20 21:00 10/14/20 19:21 Metoprolol Tartrate 50 Mg Tab PO 50 mg BID SATNAM Administration Hospitalist Exam Vitals: Vital Signs (12 hours) Temp Pulse Resp BP Pulse Ox 10/15/20 08:09 98.8 F 74 13 164/83 H 95 10/15/20 05:00 98.5 F 77 16 164/83 H 93 L Weight Weight 268 lb 8.368 oz Eye - other findings: + edema and erythema over the left eye, EOMI Heart: RRR, murmur present, II/IV Respiratory: CTAB, no wheezes, no rales, no ronchi, normal chest expansion, no tachypnea Gastrointestinal: soft, non-distended, normal bowel sounds Extremities: no cyanosis, no edema Hosp A/P (1) Left orbit fracture Code(s): S02.85XA - FRACTURE OF ORBIT, UNSPECIFIED, INIT Status: Acute (2) Hypertension Code(s): I10 - ESSENTIAL (PRIMARY) HYPERTENSION Status: Acute (3) Gout Code(s): M10.9 - GOUT, UNSPECIFIED Status: Acute (4) Atrial fibrillation Code(s): I48.91 - UNSPECIFIED ATRIAL FIBRILLATION Status: Acute (5) Sleep apnea Code(s): G47.30 - SLEEP APNEA, UNSPECIFIED Status: Acute (6) Hypothyroidism Code(s): E03.9 - HYPOTHYROIDISM, UNSPECIFIED Status: Chronic - Plan * Left Orbital fracture- continue conservative measures for now, She will need Urgent follow-up with Dr. Amin as an out patient to re-assess her orbit, and eye, once the swelling has resolved * AFIB - her heart rate is stable * DVT- will hold coumadin - re-assess in the AM * She can re-start coumadin tomorrow * Stable for discharge home
[2020-10-15] MEDS ORDERED: Potassium Chloride 10 MEQ TAB PO SCH (09:00)
[2020-10-15] MEDS ORDERED: Allopurinol 100 MG TAB PO SCH (09:00)
[2020-10-15] MEDS ORDERED: pyridOXINE 50 MG (B6) TAB PO SCH (09:00)
[2020-10-15] MEDS ORDERED: Multivit, Therapeutic 1 TAB PO SCH (09:00)
[2020-10-15] MEDS: Metoprolol Tartrate 50 MG TAB PO SCH (10:55)
[2020-10-15] MEDS ORDERED: Prevnar 13-Val Conj/PF 0.5 ML SYRINGE IM ONE (12:45)
--- NOTE | 2020-10-15 15:48 | CON ---
DATE OF CONSULTATION: 10/15/2020 HISTORY OF PRESENT ILLNESS: This is a 75-year-old female status post fall, striking her face on a chain link fence gate, resulting in a left orbital floor fracture. The patient was seen at [facility], where CT confirms left orbital floor fracture as well as a facial hematoma. The patient was admitted for intractable nausea and vomiting, and oral surgery was consulted to evaluate the facial fracture. Vital signs stable, afebrile. Physical exam; has generalized left periorbital edema and ecchymosis. There is a large hematoma overlying the left malar eminence that appears to be stable. The patient reports she does not appreciate any increase in size in this area over the last 24 hours. There has generalized subconjunctival hemorrhage of the left eye. She does have some eye opening on the left, where pupils can be evaluated, seemed to be equally round and reactive to light bilaterally. Her extraocular movements are grossly intact. She does appear to have gaze in all directions. However, there is some discomfort and movements of the left eye, which would be consistent with edema . No obvious signs of entrapment on clinical exam. Her visual acuity is grossly intact bilaterally and no other obvious signs of facial trauma appreciated. CT of the face reveals a left orbital floor fracture with approximately 0.7 cm of inferior displacement. ASSESSMENT: This is a 75-year-old female, status post fall with a left orbital floor fracture. PLAN: The patient reports that she had recent cataract surgery and lens implants placed by Dr. Amin in the [place] approximately 2 weeks prior to her injury. She is not sure when her next follow up in the office is to be scheduled or if it is already planned, but I have recommended that she follow up with Dr. Amin immediately after discharge for evaluation and thorough ocular exam regarding her previous surgery, as well as to evaluate for entrapment after continued resolution of her current edema. Due to this recent ocular surgery, the patient likely will need oculoplastic intervention for repair of orbital fracture if indicated after exam with Dr. Amin. Job ID: [id number]
[2020-10-15 16:07] VITALS: BP 174/76; TEMP 99
--- NOTE | 2020-10-15 16:12 | PDOC.DS.DS ---
Provider Date of Admission: 10/15/20 14:04 Admitting Provider: Santos Valerio MD Consultations: Other (Ophthalmology and OMFS) Primary Care Physician: [facility] Hospital Course: Ms. Tinoco is a very pleasant 75-year-old female that has a history of gout as well as atrial fibrillation and hypertension and hyperlipidemia. She also has had a history of recent eye surgery and a lens implant in the left eye. She was at home trying to close her gait when she tripped and fell and hit her face against the gate handle. She was brought to the emergency room where she was found to have a left orbital floor fracture. Oral maxillary facial surgery was consulted as well as ophthalmology. It was determined that she did not need urgent surgery. She was on Coumadin and her Coumadin was held during her hospital stay. The oral maxillary facial surgery Dr. Bazan evaluated the patient and felt that it would be best to reevaluate her after the swelling had resolved. He also felt that there was a low risk of her bleeding into the injury after she had been off of Coumadin for a total of approximately 3 days. She has a transporter driver that she normally sees Dr. Aimn in [place] and it was recommended that she see him as soon as possible to reevaluate her once the swelling has resolved and then determine whether or not she would require any additional surgical intervention. There was evidence on CT of an orbital muscle entrapment but the oral maxillary facial surgeon felt that this is a common finding seen on CT scan and likely once the swelling had resolved this can be reevaluated and lots of times this radiographic finding will resolve after the inflammation around the orbit has resolved. The patient was instructed to resume her Coumadin on tomorrow after discharge she was evaluated for home health and this was also arranged prior to her discharge. Pertinent Studies: CT scan of the facial bones CT C-Spine CT brain Lab Results: 10/15/20 05:21 10/15/20 05:22 Abnormal Lab Results - Last 48 hrs 10/14/20 07:35: MCH 31.3 H 10/15/20 05:21: RBC 3.94 L, MCV 99.3 H, MCHC 31.3 L, Monocytes # 0.8 H Vitals: Vital Signs (12 hours) Temp Pulse Resp BP Pulse Ox 10/15/20 15:20 99.0 F 77 22 H 174/76 H 95 10/15/20 12:00 165/89 H 10/15/20 11:00 96.2 F L 75 17 191/84 H 94 L 10/15/20 08:09 98.8 F 74 13 164/83 H 95 10/15/20 05:00 98.5 F 77 16 164/83 H 93 L Weight Weight 268 lb 8.368 oz Physical Exam: The patient was seen and examined on the day of discharge. Problem (1) Left orbit fracture Code(s): S02.85XA - FRACTURE OF ORBIT, UNSPECIFIED, INIT Status: Acute (2) Hypertension Code(s): I10 - ESSENTIAL (PRIMARY) HYPERTENSION Status: Acute (3) Gout Code(s): M10.9 - GOUT, UNSPECIFIED Status: Acute (4) Atrial fibrillation Code(s): I48.91 - UNSPECIFIED ATRIAL FIBRILLATION Status: Acute (5) Sleep apnea Code(s): G47.30 - SLEEP APNEA, UNSPECIFIED Status: Acute (6) Hypothyroidism Code(s): E03.9 - HYPOTHYROIDISM, UNSPECIFIED Status: Chronic Plan Home Medications: Medication Instructions Recorded Confirmed Type Allopurinol [Zyloprim] 50 mg PO DAILY 02/03/14 10/14/20 History Calcium Carbonate/Vitamin D3 1 tab PO DAILY 02/03/14 10/14/20 History [Calcium 600 + Vitamin D] Furosemide 40 tab PO DAILY PRN 02/03/14 10/14/20 History HYDROcodone Bit/APAP 10/325 [[place]] 1 tab PO PRN PRN 02/03/14 10/14/20 History Levothyroxine Sodium 50 mcg PO DAILY 02/03/14 10/14/20 History Metoprolol Tartrate 50 mg PO BID 02/03/14 10/14/20 History Ranitidine HCl 300 mg PO HS 02/03/14 10/14/20 History Simvastatin 40 mg PO HS 02/03/14 10/14/20 History Warfarin Sodium [Coumadin] 2.5 mg PO ASDIR 02/03/14 10/14/20 History Warfarin Sodium [Coumadin] 5 mg PO ASDIR 02/03/14 10/14/20 History tiZANidine HCl [Zanaflex] 4 mg PO HS PRN 02/03/14 10/14/20 History Allopurinol [Zyloprim] 1 tab PO HS 04/04/19 10/14/20 History Cholecalciferol (Vitamin D3) 2,000 unit PO DAILY 04/04/19 10/14/20 History [Vitamin D3] Fluticasone Propionate [Flonase 1 spray EA NARE DAILY 04/04/19 10/14/20 History Nasal [place]] Multivitamin [Multivitamins] 1 cap PO DAILY 04/04/19 10/14/20 History Potassium Chloride 10 meq PO DAILY 04/04/19 10/14/20 History pyridOXINE [Vitamin B 6] 100 mg PO DAILY 04/04/19 10/14/20 History Allergies: ciprofloxacin [From Cipro] Allergy (Verified 11/04/19 01:41) ITCHING, LIPS SWELLING, NAUSEA iodine Allergy (Verified 11/04/19 01:41) Anaphylaxis rivaroxaban [From Xarelto] Allergy (Verified 11/04/19 01:41) LIPS SWELL, ITCHING, NAUSEA tetracycline [Tetracycline] Allergy (Verified 11/04/19 01:41) ITCNING, LIPS SWELLING, NAUSEA adhesive tape Allergy (Uncoded 11/04/19 01:41) Discharge Instructions:: Follow-up with Dr. Amin as soon as possible Activity:: Activity as Tolerated Nourishment:: Heart Healthy Diet Referrals: Junior Menchaca FNP [Primary Care Provider] - Disposition: HOME Quality CORE MEASURES:: N/A
== END 2020-10-15 15:50 | disposition home or self-care (01) | DRG 125 ==
LOC: ERS 14:17 → ERHOLD 18:16 → SURG A 10-14 10:20 → OBSVTOIN 10-15 14:04
PROVIDERS: ADMIT Internal Medicine; ATTEND Internal Medicine
DX: S02.32XA Fracture of orbital floor, left side, initial encounter for closed fracture (principal); I82.409 Acute embolism and thrombosis of unspecified deep veins of unspecified lower extremity; I10 Essential (primary) hypertension; E78.5 Hyperlipidemia, unspecified; M10.9 Gout, unspecified; I48.91 Unspecified atrial fibrillation; E03.9 Hypothyroidism, unspecified; S06.0X0A Concussion without loss of consciousness, initial encounter; H11.32 Conjunctival hemorrhage, left eye; Z20.822 Contact with and (suspected) exposure to COVID-19; W01.198A Fall on same level from slipping, tripping and stumbling with subsequent striking against other object, initial encounter; G47.30 Sleep apnea, unspecified; Z88.1 Allergy status to other antibiotic agents; Z91.041 Radiographic dye allergy status; Z90.710 Acquired absence of both cervix and uterus; Z90.89 Acquired absence of other organs; Z79.01 Long term (current) use of anticoagulants
CPT/HCPCS: 36415; 36416; 70450; 70486; 72125; 80048; 80053; 82550; 85025; 85610; 85730; 87635; 96361; 96365; 96375; 96376; G0378; J0295; J2270; J2405; J2550; J3490; U0003; U0005

== ENCOUNTER 2020-12-02 09:58 | Outpatient (CLI) | payer MEDICARE, MEDICAID | END 2020-12-02 09:59 | disposition home or self-care (01) | LOC: BICMAMMO 09:58 | PROVIDERS: ATTEND Family Medicine | DX: Z12.31 Encounter for screening mammogram for malignant neoplasm of breast (principal) | CPT/HCPCS: 77063; 77067 ==

== ENCOUNTER 2021-12-08 11:09 | Observation (INO) | payer MEDICARE, MEDICAID ==
[2021-12-08] MEDS ORDERED: Morphine 4 MG/ML VIAL ONE (13:14)
[2021-12-08 13:38] LABS: #Basophils 0.1 thou/uL (0.0-0.2); #Eosinphils 0.2 thou/uL (0.0-0.7); #Lymphocytes 1.9 thou/uL (1.20-3.40); #Monocytes 0.5 thou/uL (0.11-0.59); #Neutrophils 7.8 thou/uL (1.40-6.50); %Basophils 0.5 % (0.0-1.0); %Eosinophils 1.7 % (0.0-10.0); %Lymphocytes 17.9 % (21.0-51.0); %Neutrophils 74.8 % (42.0-75.0); Hemoglobin 12.5 g/dL (12.0-16.0); Mean Corpuscular HGB CONC 32.5 g/dL (32.0-36.0); Mean Corpuscular Hemoglobin 31.4 pg (27.0-31.0); Mean Corpuscular Volume 96.8 fL (78.0-98.0); Platelet Count 200 thou/uL (130-400); RBC Distribution Width 12.5 % (11.5-14.5); Red Blood Cell (RBC) Count 3.97 mill/uL (4.20-5.40); White Blood Cell (WBC) Count 10.4 thou/uL (4.8-10.8)
[2021-12-08 13:39] LABS: Bilirubin Negative (Negative); Blood, Urine Negative (Negative); Clarity Turbid (Clear); Glucose, Urine (Dipstick) Normal (Negative); Ketone, Urine Negative (Negative); Leukocyte 25 Leu/uL (Negative); Nitrite 2+ (Negative); Protein, Urine (Dipstick) Negative (Neg-Trace); RBC/HPF 0-3 HPF (0-3); Urobilinogen Normal mg/dL (Less than 2); WBC/HPF 0-3 HPF (0-3); pH, Urine 7.5 (5.0-9.0)
[2021-12-08 13:44] LABS: Bacteria/HPF 1+ HPF (None Seen)
[2021-12-08 13:57] LABS: INR-International Normal Ratio 1.1; Prothrombin Time 14.5 sec (12.0-14.7)
[2021-12-08 14:07] LABS: ALT (SGPT) 9 U/L (8-55); AST (SGOT) 14 U/L (5-34); Albumin 3.8 g/dL (3.4-4.8); Alkaline Phosphatase 48 U/L (40-110); Anion Gap 12 mmol/L (10-20); BUN (Urea Nitrogen) 13 mg/dL (9.8-20.1); Bilirubin, Total 0.6 mg/dL (0.2-1.2); Calc. Creatinine Clearance 0 mL/min (70-130); Calcium 9.4 mg/dL (7.8-10.44); Carbon Dioxide 25 mmol/L (23-31); Chloride 107 mmol/L (98-107); Globulin 2.4 g/dL (2.4-3.5); Glucose 94 mg/dL (83-110); Magnesium 1.9 mg/dL (1.6-2.6); Protein, Total 6.2 g/dL (5.8-8.1); Sodium 140 mmol/L (136-145)
[2021-12-08] MEDS ORDERED: cefTRIAXone\\ROCEPHIN 1 GM VIAL ONE (14:21)
[2021-12-08] MEDS ORDERED: Ondansetron PF 4 MG/2 ML Vial IVP PRN (14:45)
[2021-12-08] MEDS ORDERED: Sodium Chloride 0.9% 1,000 ML IV SCH (14:45)
[2021-12-08] MEDS ORDERED: Ondansetron ODT 4 MG TAB SL PRN (14:45)
[2021-12-08] MEDS ORDERED: Acetaminophen 325 MG TAB PO PRN (14:45)
[2021-12-08 15:44] LABS: Amphetamine Not Detected (NotDetected); Barbiturates Screen Not Detected (NotDetected); Benzodiazepine Screen Not Detected (NotDetected); Cocaine Metabolite Screen Not Detected (NotDetected); Methadone Not Detected (NotDetected); Methamphetamine Not Detected (NotDetected); Opiate Screen Not Detected (NotDetected); Oxycodone Screen Not Detected (NotDetected); Phencyclidine (PCP) Not Detected (NotDetected); THC/Cannabinoid Screen Not Detected (NotDetected); Tricyclic Screen Not Detected (NotDetected)
[2021-12-08 16:25] VITALS: BMI 39.5
[2021-12-08] MEDS ORDERED: Nystatin Powder 15 GM BOT TOP PRN (17:03)
[2021-12-08 18:13] LABS: Troponin I 0.031 ng/mL (< 0.028)
[2021-12-08] MEDS: Morphine 2 MG/ML VIAL SLOW IVP PRN ×2 (18:25→23:56)
[2021-12-08] MEDS ORDERED: Furosemide 40 MG TAB PO PRN (19:45)
[2021-12-08] MEDS ORDERED: tiZANidine HCl 4 MG TAB PO PRN (19:45)
[2021-12-08] MEDS: Atorvastatin Calcium 20 MG TAB PO SCH (20:38)
[2021-12-08] MEDS: Metoprolol Tartrate 50 MG TAB PO SCH ×2 (20:40→20:45)
[2021-12-08 20:51] LABS: Troponin I 0.027 ng/mL (< 0.028)
[2021-12-09] MEDS: Morphine 2 MG/ML VIAL SLOW IVP PRN (05:43)
[2021-12-09 06:33] LABS: #Eosinphils 0.2 thou/uL (0.0-0.7); #Monocytes 0.6 thou/uL (0.11-0.59); #Neutrophils 4.3 thou/uL (1.40-6.50); %Basophils 0.5 % (0.0-1.0); %Eosinophils 3.4 % (0.0-10.0); %Lymphocytes 28.1 % (21.0-51.0); Hemoglobin 11.4 g/dL (12.0-16.0); Mean Corpuscular HGB CONC 32.9 g/dL (32.0-36.0); Mean Corpuscular Hemoglobin 32.1 pg (27.0-31.0); Mean Corpuscular Volume 97.5 fL (78.0-98.0); Mean Platelet Volume 8.1 fL (7.4-10.4); Platelet Count 172 thou/uL (130-400); RBC Distribution Width 12.5 % (11.5-14.5); Red Blood Cell (RBC) Count 3.56 mill/uL (4.20-5.40); White Blood Cell (WBC) Count 7.2 thou/uL (4.8-10.8)
[2021-12-09 06:51] LABS: Anion Gap 11 mmol/L (10-20); BUN (Urea Nitrogen) 11 mg/dL (9.8-20.1); Calc. Creatinine Clearance 104 mL/min (70-130); Calcium 8.7 mg/dL (7.8-10.44); Carbon Dioxide 25 mmol/L (23-31); Chloride 106 mmol/L (98-107); Glucose 86 mg/dL (83-110); Magnesium 1.8 mg/dL (1.6-2.6); Potassium 4.2 mmol/L (3.5-5.1); Sodium 138 mmol/L (136-145)
[2021-12-09] MEDS: Metoprolol Tartrate 50 MG TAB PO SCH ×2 (08:35→20:23)
[2021-12-09] MEDS: Potassium Chloride 10 MEQ TAB PO SCH (08:35)
[2021-12-09] MEDS: Levothyroxine Sodium 50 MCG TAB PO SCH (08:35)
[2021-12-09] MEDS: Allopurinol 100 MG TAB PO SCH (08:35)
[2021-12-09 12:18] LABS: SARS-CoV-2 PCR by NAA Not Detected (NotDetected)
[2021-12-09] MEDS: cefTRIAXone\\ROCEPHIN 1 GM in Sodium Chloride 0.9% 100 ML IVPB SCH (13:33)
[2021-12-09] MEDS: Morphine 4 MG/ML VIAL SLOW IVP PRN ×2 (16:59→22:42)
[2021-12-09] MEDS: Atorvastatin Calcium 20 MG TAB PO SCH (20:23)
[2021-12-10 06:10] LABS: #Basophils 0.1 thou/uL (0.0-0.2); #Eosinphils 0.3 thou/uL (0.0-0.7); #Lymphocytes 1.9 thou/uL (1.20-3.40); #Monocytes 0.7 thou/uL (0.11-0.59); #Neutrophils 5.6 thou/uL (1.40-6.50); %Basophils 0.6 % (0.0-1.0); %Eosinophils 3.7 % (0.0-10.0); %Lymphocytes 22.2 % (21.0-51.0); %Monocytes 8.6 % (0.0-10.0); Hemoglobin 11.6 g/dL (12.0-16.0); Mean Corpuscular HGB CONC 33.3 g/dL (32.0-36.0); Mean Corpuscular Hemoglobin 32.4 pg (27.0-31.0); Mean Corpuscular Volume 97.2 fL (78.0-98.0); Mean Platelet Volume 8.2 fL (7.4-10.4); Platelet Count 157 thou/uL (130-400); RBC Distribution Width 12.3 % (11.5-14.5); Red Blood Cell (RBC) Count 3.58 mill/uL (4.20-5.40); White Blood Cell (WBC) Count 8.6 thou/uL (4.8-10.8)
[2021-12-10 06:23] LABS: Anion Gap 11 mmol/L (10-20); BUN (Urea Nitrogen) 12 mg/dL (9.8-20.1); Calc. Creatinine Clearance 113 mL/min (70-130); Calcium 8.5 mg/dL (7.8-10.44); Carbon Dioxide 21 mmol/L (23-31); Chloride 108 mmol/L (98-107); Glucose 94 mg/dL (83-110); Potassium 4.1 mmol/L (3.5-5.1); Sodium 136 mmol/L (136-145)
[2021-12-10] MEDS: Potassium Chloride 10 MEQ TAB PO SCH (08:19)
[2021-12-10] MEDS: Allopurinol 100 MG TAB PO SCH (08:19)
[2021-12-10] MEDS: Metoprolol Tartrate 50 MG TAB PO SCH (08:20)
[2021-12-10] MEDS: Morphine 2 MG/ML VIAL SLOW IVP PRN (08:20)
[2021-12-10] MEDS: Levothyroxine Sodium 50 MCG TAB PO SCH (08:20)
[2021-12-10 12:01] VITALS: BP 133/75; TEMP 98.2
[2021-12-10] MEDS: cefTRIAXone\\ROCEPHIN 1 GM in Sodium Chloride 0.9% 100 ML IVPB SCH (13:43)
== END 2021-12-10 16:57 | disposition home health service (06) ==
LOC: ERS 11:09 → T4-A 14:38
PROVIDERS: ADMIT Internal Medicine; ATTEND Internal Medicine
DX: N30.00 Acute cystitis without hematuria (principal); B96.20 Unspecified Escherichia coli [E. coli] as the cause of diseases classified elsewhere; R29.6 Repeated falls; S70.01XA Contusion of right hip, initial encounter; R53.81 Other malaise; I48.0 Paroxysmal atrial fibrillation; M1A.09X0 Idiopathic chronic gout, multiple sites, without tophus (tophi); I10 Essential (primary) hypertension; E89.0 Postprocedural hypothyroidism; S70.11XA Contusion of right thigh, initial encounter; M16.11 Unilateral primary osteoarthritis, right hip; M50.31 Other cervical disc degeneration, high cervical region; M47.812 Spondylosis without myelopathy or radiculopathy, cervical region; M17.11 Unilateral primary osteoarthritis, right knee; E78.5 Hyperlipidemia, unspecified; J44.9 Chronic obstructive pulmonary disease, unspecified; K21.9 Gastro-esophageal reflux disease without esophagitis; G89.4 Chronic pain syndrome; R77.8 Other specified abnormalities of plasma proteins; K80.20 Calculus of gallbladder without cholecystitis without obstruction; N20.0 Calculus of kidney; E89.2 Postprocedural hypoparathyroidism; Z86.711 Personal history of pulmonary embolism; Z86.718 Personal history of other venous thrombosis and embolism; Z16.11 Resistance to penicillins; Z16.39 Resistance to other specified antimicrobial drug; Z79.890 Hormone replacement therapy; Z79.899 Other long term (current) drug therapy; Z88.1 Allergy status to other antibiotic agents; Z88.8 Allergy status to other drugs, medicaments and biological substances; Z91.041 Radiographic dye allergy status; Z91.048 Other nonmedicinal substance allergy status; Z20.822 Contact with and (suspected) exposure to COVID-19; W18.30XA Fall on same level, unspecified, initial encounter
CPT/HCPCS: 70450; 71250; 72125; 73502; 73552; 73564 ×2; 74177; 80048 ×2; 80053; 80306; 82553; 83735 ×2; 84484 ×2; 85025 ×3; 85610; 85730; 87077; 87086; 87186; 93005; 96365; 96375; 97116 ×2; 97139 ×4; 97530; 97535; 99285; J2270 ×3; U0003; U0005; 36415; 81003; 81015; 96376; G0378; J0696; J3490; J7050

== ENCOUNTER 2023-05-22 09:34 | Emergency (ER) | payer MEDICARE, MEDICAID ==
[2023-05-22] MEDS ORDERED: Ondansetron PF 4 MG/2 ML Vial ONE (10:20)
[2023-05-22] MEDS ORDERED: Morphine 4 MG/ML VIAL ONE (10:20)
[2023-05-22 10:34] LABS: #Basophils 0.1 thou/uL (0.0-0.2); #Eosinphils 0.2 thou/uL (0.0-0.7); #Monocytes 0.5 thou/uL (0.11-0.59); #Neutrophils 4.1 thou/uL (1.40-6.50); %Basophils 0.7 % (0.0-1.0); %Eosinophils 2.8 % (0.0-10.0); %Lymphocytes 28.8 % (21.0-51.0); %Monocytes 6.9 % (0.0-10.0); %Neutrophils 60.5 % (42.0-75.0); Hematocrit 35.4 % (36.0-47.0); Hemoglobin 11.7 g/dL (12.0-16.0); Mean Corpuscular HGB CONC 33.1 g/dL (32.0-36.0); Mean Corpuscular Hemoglobin 30.8 pg (27.0-31.0); Mean Corpuscular Volume 93.2 fl (78.0-98.0); Mean Platelet Volume 11.1 fL (7.4-10.4); Platelet Count 143 10x3/uL (130-400); RBC Distribution Width 15.5 % (11.5-14.5); White Blood Cell (WBC) Count 6.7 10x3/uL (4.8-10.8)
[2023-05-22 10:49] LABS: INR-International Normal Ratio 1.3; Prothrombin Time 16.4 sec (12.0-14.7)
[2023-05-22 10:56] LABS: Bacteria/HPF None Seen HPF (None Seen); Bilirubin Negative (Negative); Blood, Urine Negative (Negative); CAUTI Indications for Culture Dysuria,urgency,freq; Clarity Clear (Clear); Glucose, Urine (Dipstick) Normal (Negative); Ketone, Urine Negative (Negative); Leukocyte 75 Leu/uL (Negative); Nitrite 1+ (Negative); Protein, Urine (Dipstick) Negative (Neg-Trace); RBC/HPF 0-3 HPF (0-3); Squamous Epithelial 0-3 HPF (0-3); Urobilinogen Normal mg/dL (Less than 2); WBC/HPF 0-3 HPF (0-3)
[2023-05-22 10:59] LABS: ALT (SGPT) 10 U/L (8-55); AST (SGOT) 17 U/L (5-34); Albumin 3.8 g/dL (3.4-4.8); Alkaline Phosphatase 55 U/L (40-110); Anion Gap 13 mmol/L (10-20); BUN (Urea Nitrogen) 19 mg/dL (9.8-20.1); Bilirubin, Total 0.6 mg/dL (0.2-1.2); Calc. Creatinine Clearance 0 mL/min (70-130); Calcium 9.8 mg/dL (7.8-10.44); Carbon Dioxide 23 mmol/L (23-31); Chloride 109 mmol/L (98-107); Estimated GFR 60; Globulin 2.5 g/dL (2.4-3.5); Glucose 111 mg/dL (83-110); Potassium 3.8 mmol/L (3.5-5.1); Protein, Total 6.3 g/dL (5.8-8.1); Sodium 141 mmol/L (136-145)
[2023-05-22 11:02] LABS: Urine Culture Reflex No No
== END 2023-05-22 16:05 | disposition home or self-care (01) ==
LOC: ERS 09:34
DX: S60.221A Contusion of right hand, initial encounter (principal); S60.222A Contusion of left hand, initial encounter; M25.551 Pain in right hip; E78.5 Hyperlipidemia, unspecified; I10 Essential (primary) hypertension; J44.9 Chronic obstructive pulmonary disease, unspecified; Z86.711 Personal history of pulmonary embolism; Z79.899 Other long term (current) drug therapy; Z79.82 Long term (current) use of aspirin; W18.39XA Other fall on same level, initial encounter
CPT/HCPCS: 70450; 71045; 72125; 72170; 80053; 81001; 85025; 85610; 85730; 96374; 96375; J2270; J2405